=== PATIENT | male | born 1985 | race African-American/Black ===

== ENCOUNTER 2022-05-31 18:27 | Emergency (ER) | payer BC ==
[2022-05-31] MEDS ORDERED: Ondansetron 4 MG Tab.DIS PO ONE ×2 (18:28→18:31)
[2022-05-31] MEDS ORDERED: Loperamide 2 MG Cap PO STA (18:31)
[2022-05-31] MEDS ORDERED: Acetaminophen 500 MG Tab PO ONE (19:39)
== END 2022-05-31 19:50 | disposition home or self-care (01) ==
LOC: FB.ED 18:27
DX: A08.4 Viral intestinal infection, unspecified (principal); R11.2 Nausea with vomiting, unspecified; F17.210 Nicotine dependence, cigarettes, uncomplicated
CPT/HCPCS: 99283; A9270; Q0162